=== PATIENT | female | born 1995 | race American Indian/Alaskan Native ===

== ENCOUNTER 2016-08-25 13:30 | Emergency (ER) | payer MEDICAID ==
[2016-08-25] MEDS ORDERED: ROCEPHIN IV ONE (16:15)
[2016-08-25] MEDS ORDERED: XYLOCAINE 1% MPF 5 mL INFILTRATI ONE (16:15)
[2016-08-25] MEDS ORDERED: CLEOCIN 600 MG/50 mL 600 MG/50 ML BAG IV ONE (16:15)
[2016-08-25] MEDS ORDERED: MORPHINE IV ONE ×2 (16:16→17:41)
[2016-08-25] MEDS ORDERED: ROCEPHIN/NS 1 GM/50 ML 1 GM/50 ML BAG IV ONE (16:42)
[2016-08-25] MEDS: ROCEPHIN 500 MG in NACL 0.9% 50 ML IV ONE ×2 (17:25→19:09)
[2016-08-25] MEDS ORDERED: MORPHINE ONE (18:08)
--- NOTE | 2016-08-25 18:47 | Emergency Department Report ---
Entered by MOSES ESTEVES, acting as scribe for WHITNEY BAKER NP. ED Upper Extremity Inj HPI - General Chief Complaint: Wound/Laceration Stated Complaint: POSS SPIDER BITE Time Seen by Provider: 08/25/16 15:35 Source: patient Mode of arrival: Ambulatory Limitations: No Limitations - History of Present Illness Initial Comments: This is a 20 y/o female, nontoxic, well nourished in appearance, no acute signs of distress with a PMHx of anxiety presents with c/o right forearm pain and redness secondary to an insect bite that began 1 day ago. Patient states she believes it is a mosquito bite, but she woke up with the pain worse and the redness spreading. Patient denies seeing the insect bite but believes something bit her. Reports the pain radiates up her right arm. Rates pain an 10/10 in severity, which she describes as sharp, throbbing, and burning in quality. Aggravated with nothing alleviated with nothing. Denies right forearm injury and trauma. Patient denies fever, chills, chest pain, SOB, BENAVIDES or dizziness, numbness, tingling. Patient denies ROM of wrist or elbow. NKDA. Patients mother is currently present at bedside. Stated she will drive the patient home. MD Complaint: Injury to:: right, forearm Onset/Timin -: days(s) Other Extremity Injury: Forearm: Right (no injury) Other Injuries: none Place: home Severity scale (0 -10): 10 Improves With: none Worsens With: none Context: animal bite (possible insect bite) Associated Symptoms: denies other symptoms. denies: weakness, numbness, neck pain, suspects foreign body, nausea/vomiting, heard/felt popping sensat - Related Data Home Medications Medication Instructions Recorded Confirmed Last Taken Vit#96/Ferrous Fum/FA 1 tab PO DAILY 11/02/12 06/29/14 06/29/14 09:00 [ Tablet] 1 Previous Rx's Medication Instructions Recorded Last Taken Type Dicloxacillin [Dynapen] 500 mg PO Q6H #40 capsule 11/02/12 Unknown Rx HYDROcodone/APAP 5-325 [[place] 1 each PO Q6HR PRN #15 tablet 11/02/12 Unknown Rx 5/325 mg] Cephalexin [Keflex] 500 mg PO Q6HR 7 Days 08/25/16 Unknown Rx Clindamycin [Clindamycin CAP] 450 mg PO Q8HR 7 Days 08/25/16 Unknown Rx HYDROcodone/APAP 7.5-325 [[place] 1 each PO Q6HR PRN #12 tablet 08/25/16 Unknown Rx 7.5/325] Allergies Allergy/AdvReac Type Severity Reaction Status Date / Time No Known Allergies Allergy Verified 06/29/14 12:52 ED Review of Systems Comment: All other systems reviewed and negative Constitutional: denies: chills, fever Eyes: denies: eye pain, eye discharge, vision change ENT: denies: ear pain, throat pain Respiratory: denies: cough, orthopnea, shortness of breath, SOB with exertion, SOB at rest, stridor, wheezing Cardiovascular: denies: chest pain, palpitations Endocrine: no symptoms reported Gastrointestinal: denies: abdominal pain, nausea, vomiting, diarrhea Genitourinary: denies: urgency, dysuria, discharge Musculoskeletal: myalgia (right forearm pain). denies: back pain, joint swelling, arthralgia Skin: other (left forearm redness). denies: rash, lesions Neurological: denies: headache, weakness, numbness, paresthesias Psychiatric: denies: anxiety, depression Hematological/Lymphatic: denies: easy bleeding, easy bruising ED Past Medical Hx - Past Medical History Previous Medical History?: Yes Hx Hypertension: No Hx Diabetes: No Hx Deep Vein Thrombosis: No Hx Renal Disease: No Hx Sickle Cell Disease: No Hx Seizures: No Hx Psychiatric Treatment: Yes (Treated @ [facility]) Hx Asthma: No Hx HIV: No Additional medical history: anxiety, Vaginal delivery x 2, Miscarriage x 1 - Surgical History Past Surgical History?: Yes Additional Surgical History: DN 712/17 - Social History Smoking Status: Never Smoker - Medications Home Medications: Home Medications Medication Instructions Recorded Confirmed Last Taken Type Dicloxacillin [Dynapen] 500 mg PO Q6H #40 capsule 11/02/12 06/29/14 Unknown Rx HYDROcodone/APAP 5-325 [[place] 1 each PO Q6HR PRN #15 tablet 11/02/12 06/29/14 Unknown Rx 5/325 mg] Vit#96/Ferrous Fum/FA 1 tab PO DAILY 11/02/12 06/29/14 06/29/14 09:00 History [ Tablet] 1 Cephalexin [Keflex] 500 mg PO Q6HR 7 Days 08/25/16 Unknown Rx Clindamycin [Clindamycin CAP] 450 mg PO Q8HR 7 Days 08/25/16 Unknown Rx HYDROcodone/APAP 7.5-325 [[place] 1 each PO Q6HR PRN #12 tablet 08/25/16 Unknown Rx 7.5/325] ED Physical Exam - General Limitations: No Limitations General appearance: alert, in no apparent distress - Head Head exam: Present: atraumatic, normocephalic - Eye Eye exam: Present: normal appearance, PERRL, EOMI Pupils: Present: normal accommodation - ENT ENT exam: Present: normal exam, mucous membranes moist, TM's normal bilaterally , normal external ear exam - Neck Neck exam: Present: normal inspection, full ROM. Absent: tenderness, meningismus, lymphadenopathy, thyromegaly - Respiratory Respiratory exam: Present: normal lung sounds bilaterally. Absent: respiratory distress, wheezes, rales, rhonchi, stridor, chest wall tenderness, accessory muscle use, decreased breath sounds, prolonged expiratory - Cardiovascular Cardiovascular Exam: Present: regular rate, normal rhythm, normal heart sounds. Absent: bradycardia, tachycardia, irregular rhythm, systolic murmur, diastolic murmur, rubs, gallop - GI/Abdominal GI/Abdominal exam: Present: soft, normal bowel sounds. Absent: distended, tenderness, guarding, rebound, rigid, diminished bowel sounds - Rectal Rectal exam: Present: deferred - Extremities Exam Extremities exam: Present: normal inspection, full ROM, normal capillary refill. Absent: tenderness, pedal edema, joint swelling, calf tenderness - Expanded Upper Extremity Exam Right General: Absent: laceration, abrasion, nail injury (#), foreign body, amputation , avulsion Shoulder Exam: Present: normal inspection, full ROM. Absent: tenderness, swelling, abrasion, laceration, ecchymosis, deformity, crepidus, dislocation, erythema, tenderness over AC joint Upper Arm exam: Present: normal inspection, full ROM. Absent: tenderness, swelling, abrasion, laceration, ecchymosis, deformity, crepidus, dislocation, erythema Elbow exam: Present: normal inspection, full ROM (full, but slight painful with ROM). Absent: tenderness, swelling, abrasion, laceration, ecchymosis, deformity , crepidus, dislocation, erythema, effusion, pain w/ pronation/supination, tenderness over radial head Forearm Wrist exam: Present: full ROM (full, but painful ROM), tenderness, erythema ([id number] circular. No pus. No fluctance present. No swelling.), other ( right forearm is warm to touch). Absent: swelling, abrasion, laceration, ecchymosis, deformity, crepidus, dislocation, tenderness over anatomical snuff box, pain with axial thumb loading Hand Wrist exam: Present: normal inspection, full ROM. Absent: tenderness, swelling, abrasion, laceration, ecchymosis, deformity, crepidus, dislocation, erythema, amputation, nail avulsion, subungual hematoma Neuro motor exam: Present: wrist extension intact, thumb opposition intact, thumb IP flexion intact, thumb adduction intact, fingers 2-5 abduction intact Neurosensory exam: Present: 2-point discrimination, radial nerve intact, ulnar nerve intact, median nerve intact Vascular: Present: normal capillary refill, radial pulse (2+), brachial pulse (2 +), ulnar pulse (2+). Absent: vascular compromise, Pallo, pulse deficit radial art, pulse deficit ulnar art, pulse deficit brachial art - Back Exam Back exam: Present: normal inspection, full ROM. Absent: tenderness, CVA tenderness (R), CVA tenderness (L), muscle spasm, paraspinal tenderness, vertebral tenderness, rash noted - Neurological Exam Neurological exam: Present: alert, oriented X3, CN II-XII intact, normal gait, reflexes normal. Absent: motor sensory deficit - Psychiatric Psychiatric exam: Present: normal affect, normal mood - Skin Skin exam: Present: warm, dry, intact. Absent: rash - Other Other exam information: normal ROM of wrist and digits. Slight discomfort with elbow ROM. No joint swelling or joing redness. Not warm to touch of elbow joint or wrist joints. Nontender upon palpation. ED Course Vital Signs 08/25/16 14:52 Temperature 98.6 F Pulse Rate 80 Blood Pressure 144/73 O2 Sat by Pulse 100 Oximetry - Reevaluation(s) Reevaluation #1: 08/25/16 16:54 Patient is able to speak in full sentences with no signs of distress noted. Reevaluation #2: 07/19/17 18:32 Patient was instructed not to operate any machinery at the time of discharge due to drowsiness/sedation of morphine. Mother states she will try the patient home. - Consultations Consultation #1: 08/25/16 16:51 Dr. Joe was consulted about patient and examined patient. Agrees to clinda and Rocephin IV in the ED followed with Keflex and Clinda at d/c. ED Medical Decision Making - Medical Decision Making Ed course: This is a 20-year-old female that presents with cellulites of right forearm 1- patient was examined by myself and Dr. Joe. No signs and symptoms of joint involvement or tendon involvement. Patient received Clinda 600 and Rocephin 500 IV in ED 2- I used a permanent marker to outline the erythema area of the forearm. I instructed the patient to observe signs and symptoms of increasing redness or swelling past the permanent marker. Patient agrees to the plan of care after discharge. 3- patient was also instructed to follow up with her primary care doctor in 24 hours or if symptoms such as numbness, tingling, decreased range of motion, joint redness, joint swelling, fever, chills, pus, drainage, or worsening symptoms return to emergency room as soon as possible. 4- patient received clindamycin and Keflex at the time of discharge. 5- at time time of discharge, the patient does not seem toxic or ill in appearance. No acute signs of distress noted. Patient agrees to discharge treatment plan of care. No further questions noted by the patient. 6- Patient was instructed not to operate any machinery at the time of discharge due to drowsiness/sedation of morphine. Mother states she will try the patient home. ED Disposition Clinical Impression: Cellulitis Qualifiers: Site of cellulitis: extremity Site of cellulitis of extremity: upper extremity Laterality: right Qualified Code(s): L03.113 - Cellulitis of right upper limb Disposition: DC-01 TO HOME OR SELFCARE Is pt being admited?: No Does the pt Need Aspirin: No Condition: Stable Instructions: Cephalexin (By mouth), Clindamycin (By mouth), Hydrocodone/ Acetaminophen (By mouth) Additional Instructions: Do not to operate any machinery at the time of discharge due to drowsiness/ sedation of morphine. Observe signs and symptoms of increasing redness or swelling past the permanent marker, if so return back to ED as soon as possible. Follow up with her primary care doctor in 24 hours or if symptoms such as numbness, tingling, decreased range of motion, joint redness, joint swelling, fever, chills, pus, drainage, or worsening symptoms return to emergency room as soon as possible. Take full course of antibiotics as prescribed. Prescriptions: Cephalexin [Keflex] 500 mg PO Q6HR 7 Days Clindamycin [Clindamycin CAP] 450 mg PO Q8HR 7 Days HYDROcodone/APAP 7.5-325 [[place] 7.5/325] 1 each PO Q6HR PRN #12 tablet PRN Reason: Pain Referrals: [facility] [Outside] - 3-5 Days [facility] [Outside] - 3-5 Days PRIMARY CARE, [Primary Care Provider] - 24 Hours SHIMA ODELL MD, PHD [Staff Physician] - 24 Hours Forms: Work/School Release Form(ED) This documentation as recorded by the LINN duque JASMINE,accurately reflects the service I personally performed and the decisions made by ,WHITNEY BAKER, URINALYSIS TECHNICIAN.
[2016-08-25 19:11] VITALS: BP 148/94
== END 2016-08-25 19:10 | disposition home or self-care (01) ==
LOC: ED 13:30
DX: L03.113 Cellulitis of right upper limb (principal)
CPT/HCPCS: 96365; 96375; 96376; 99282; J0696; J2270